=== PATIENT | male | born 1960 | race Caucasian/White ===

== ENCOUNTER → 2016-08-17 | Emergency (ER) | payer OTHER ==
[~2016-08-17] VITALS: Ht 180.3 cm; Wt 77.0 kg
[~2016-08-17] MED LIST: AVALIDE 300/1 TABLET PO; CARTIA XT240 MG PO; Fish Oil PO; HYDROCHLOROTHIA25 MG PO; LISINOPRIL10 MG PO; METOPROLOL SUC100 MG PO; OMEPRAZOLE40 M1 PO; POTASSIUM CHLO20 ME2 PO; PRAVASTATIN SOD40 MG PO; TOPROL XL50 MG PO
[2016-08-17 10:54] LABS: HEMATOCRIT 41.8 % (38.0-50.0); MCH 30.1 PG (29.0-34.0); MCHC 35.4 G/DL (30.0-36.0); MCV 85.1 FL (86-99); PLATELET COUNT 346 K/uL (156-360); RBC DIS.WIDTH-CV 12.4 % (11.8-14.6); RBC DIS.WIDTH-SD 37.9 % (39-53); RED BLOOD COUNT 4.91 M/uL (4.00-5.50); WHITE BLOOD COUNT 6.9 K/uL (4.1-10.2)
[2016-08-17 11:05] LABS: CHLORIDE 104 mEq/L (99-109); POTASSIUM 4.2 mEq/L (3.7-5.4); SODIUM 142 mEq/L (136-147)
[2016-08-17 11:07] LABS: GLUCOSE 100 mg/dL (70-99)
[2016-08-17 11:08] LABS: ANION GAP 13 MEQ/L (2-14)
[2016-08-17 11:10] LABS: GFR ESTIMATE (CALCULATED) > 59 mL/min/
[2016-08-17 11:11] LABS: UREA NITROGEN (BUN) 12 mg/dL (9-23)
[2016-08-17 11:14] LABS: TROP-I INTERPRETATION NEGATIVE; TROPONIN-I < 0.01 ng/mL (0.0-0.30)
[2016-08-17 12:15] LABS: TOTAL BILIRUBIN 0.4 mg/dL (0.0-1.0)
[2016-08-17 12:16] LABS: ALKALINE PHOSPHATASE 73 IU/L (3-129)
[2016-08-17 12:18] LABS: DIRECT BILIRUBIN 0.1 mg/dL (0.0-0.3)
[2016-08-17 12:19] LABS: LIPASE 83 U/L (1.0-51.0)
[2016-08-17 13:57] LABS: TROP-I INTERPRETATION NEGATIVE; TROPONIN-I < 0.01 ng/mL (0.0-0.30)
[2016-08-17 14:46] VITALS: BP 128/95
== END | disposition home or self-care (01) ==
LOC: EME 10:14
PROVIDERS: Physician Assistant
DX: R07.9 Chest pain, unspecified (principal); R10.11 Right upper quadrant pain; E78.5 Hyperlipidemia, unspecified; I10 Essential (primary) hypertension; F17.200 Nicotine dependence, unspecified, uncomplicated
CPT/HCPCS: 71020; 74020; 76705; 80048; 80076; 83690; 84484; 85027; 93005; 99281; 99283

== ENCOUNTER 2017-11-01 16:32 | Emergency (ER) | payer OTHER ==
[~2017-11-01] VITALS: Ht 180.3 cm; Wt 83.4 kg
[2017-11-01 17:10] LABS: HEMATOCRIT 37.6 % (38.0-50.0); HEMOGLOBIN 13.1 G/DL (12.5-16.6); MCHC 34.8 G/DL (30.0-36.0); MCV 86.2 FL (86-99); PLATELET COUNT 366 K/uL (156-360); RBC DIS.WIDTH-CV 12.1 % (11.8-14.6); RBC DIS.WIDTH-SD 38.1 % (39-53); RED BLOOD COUNT 4.36 M/uL (4.00-5.50); WHITE BLOOD COUNT 7.4 K/uL (4.1-10.2)
[2017-11-01 17:18] LABS: ALBUMIN 4.4 g/dL (3.2-4.8)
[2017-11-01 17:19] LABS: CHLORIDE 104 mEq/L (99-109); POTASSIUM 3.5 mEq/L (3.7-5.4); SODIUM 143 mEq/L (136-147)
[2017-11-01 17:21] LABS: GLUCOSE 126 mg/dL (70-99); TOTAL PROTEIN 7.7 g/dL (6.4-8.3)
[2017-11-01 17:23] LABS: TOTAL BILIRUBIN 0.2 mg/dL (0.0-1.0)
[2017-11-01 17:24] LABS: ALKALINE PHOSPHATASE 77 IU/L (3-129)
[2017-11-01 17:25] LABS: GFR ESTIMATE (CALCULATED) > 59 mL/min/ (58.99-99999)
[2017-11-01 17:26] LABS: AST (GOT) 18 IU/L (2-34); UREA NITROGEN (BUN) 18 mg/dL (9-23)
[2017-11-01 17:28] LABS: ALT (GPT) 20 IU/L (3-49)
[2017-11-01 17:30] LABS: TROP-I INTERPRETATION NEGATIVE; TROPONIN-I 0.01 ng/mL (0.0-0.30)
[2017-11-01 18:43] LABS: APPEARANCE CLEAR ((CLEAR)); BILIRUBIN NEGATIVE; BLOOD NEGATIVE; COLOR STRAW ((YELLOW)); GLUCOSE (STRIP) NEGATIVE; KETONES NEGATIVE; LEUKOCYTES NEGATIVE; NITRITE NEGATIVE; PROTEIN (STRIP) NEGATIVE; SPECIFIC GRAVITY 1.009 (1.000-1.030); UCUL ADDED? NO; UROBILINOGEN 0.2 MG/DL (0.2-1.0)
[2017-11-01] MEDS ORDERED: ANTIVERT25 MG PO (18:49)
[2017-11-01] MEDS ORDERED: ZOFRAN ODT4 MG PO (18:49)
[2017-11-01 20:28] VITALS: BP 154/87
== END 2017-11-01 20:29 | disposition home or self-care (01) ==
LOC: EXP 16:32 → EME 16:32 → EXP 20:29
PROVIDERS: Nurse Practitioner Acute Care
DX: R42 Dizziness and giddiness (principal); R51 Headache; E78.5 Hyperlipidemia, unspecified; I10 Essential (primary) hypertension; F17.200 Nicotine dependence, unspecified, uncomplicated; Z88.0 Allergy status to penicillin
CPT/HCPCS: 70450; 80053; 81003; 84484; 85027; 93005; 99281; 99285